=== PATIENT | male | born 1970 | race Asian ===

== ENCOUNTER 2019-07-15 08:19 | Emergency (ER) | payer MEDICAID ==
[~2019-07-15] VITALS: Ht 165.1 cm; Wt 77.3 kg
[2019-07-15] MEDS ORDERED: ondansetron/PF 4mg/2ml inj IV ONE ×2 (08:25→10:15)
[2019-07-15] MEDS ORDERED: normal saline 1000ML IV soln IVB ONE (08:25)
[2019-07-15] MEDS ORDERED: morphine 4 MG/ML inj SYRINge IV PRN (08:25)
[2019-07-15 08:54] LABS: BASOPHILS % (AUTO) 0.3 % (0-1); EOSINOPHILS % (AUTO) 0.3 % (0-6); HEMATOCRIT 40.5 % (42.0-52.0); HEMOGLOBIN 13.6 g/dl (14.0-17.9); LYMPHOCYTES # (AUTO) 1.3 X10'3 (1.1-4.8); LYMPHOCYTES % (AUTO) 10.4 % (21-51); MEAN CORPUSCULAR HEMOGLOBIN 30.2 PG (27.0-31.0); MEAN CORPUSCULAR HGB CONC 33.5 g/dL (33.0-36.5); MEAN PLATELET VOLUME 6.8 FL (7.4-10.4); MONOCYTES # (AUTO) 0.8 X10'3 (0-0.9); MONOCYTES % (AUTO) 6.4 % (2-12); NEUTROPHILS # (AUTO) 10.6 X10'3 (1.8-7.7); NEUTROPHILS % (AUTO) 82.6 % (42-75); PLATELET COUNT 503 X10'3 (140-440); RED CELL DISTRIBUTION WIDTH 14.3 % (11.5-14.5); WHITE BLOOD COUNT 12.8 X10'3 (4.5-11.0)
[2019-07-15 09:14] LABS: ALANINE AMINOTRANSFERASE 29 U/L (12-78); ALBUMIN 3.9 G/DL (3.4-5.0); ALBUMIN/GLOBULIN RATIO 1.1 (1.1-1.5); ALKALINE PHOSPHATASE 96 IU/L (46-116); ANION GAP 7 (8-16); ASPARTATE AMINO TRANSFERASE 22 U/L (10-37); BILIRUBIN,TOTAL 0.3 MG/DL (0.1-1.0); BLOOD UREA NITROGEN 11 MG/DL (7-18); BUN/CREATININE RATIO 14.3 (5.4-32.0); CALCIUM 8.6 MG/DL (8.5-10.1); CHLORIDE 102 MMOL/L (99-107); CREATININE 0.77 MG/DL (0.60-1.10); GLUCOSE 113 MG/DL (70-104); LIPASE 123 U/L (73-393); POTASSIUM 3.9 MMOL/L (3.5-5.1); SODIUM 138 MMOL/L (135-145); TOTAL CARBON DIOXIDE 28.6 MMOL/L (24-32); TOTAL PROTEIN 7.4 G/DL (6.4-8.2); eGFR > 90 ML/MIN
[2019-07-15] MEDS ORDERED: ketorolac trometh. 30mg/ml inj. IV ONE (09:45)
[2019-07-15] MEDS ORDERED: famotidine/PF 10 mg/ml inj IV ONE (09:45)
[2019-07-15 09:49] LABS: CLARITY,URINE CLEAR (Clear); COLOR,URINE STRAW (Yellow); GLUCOSE, URINE NEGATIVE (Neg); KETONES,URINE TRACE mg/dl (Neg); LEUKOCYTE ESTERASE ,URINE NEGATIVE (Neg); NITRITES, URINE NEGATIVE (Neg); OCCULT BLOOD,URINE TRACE-INTACT (Neg); PROTEIN,URINE NEGATIVE (Neg); UROBILINOGEN,URINE 0.2 E.U/dL (0.2-1.0)
--- NOTE | 2019-07-15 09:50 | NUR ---
Breaking Primary RN, pt is laying on his left side, reattached tele leads.
[2019-07-15 09:51] LABS: UA COLLECTION TYPE CLN CATCH MIDSTREAM
[2019-07-15 09:54] LABS: MUCUS STRANDS MANY /LPF (Neg); SQUAMOUS EPITHELIAL CELL,UR FEW /LPF (FEW); TRANSITIONAL EPI CELLS,URINE FEW /HPF
[2019-07-15 09:55] LABS: BACTERIA,URINE FEW /HPF (Neg)
[2019-07-15 09:56] LABS: RBC,URINE 0-2 /HPF (0-2); WBC,URINE NONE SEEN /HPF (0-4)
--- NOTE | 2019-07-15 09:58 | NUR ---
pt to the bathroom
[2019-07-15 10:01] LABS: ETHANOL < 0.010 GM/DL (0.0-0.010)
[2019-07-15 10:04] VITALS: BP 170/91
[2019-07-15] MEDS ORDERED: ONDA4TAB6 PO (10:05)
[2019-07-15 11:14] LABS: URINE AMPHETAMINE SCREEN POSITIVE (Neg); URINE BARBITUATE SCREEN NEGATIVE (Neg); URINE BENZODIAZEPINES SCREEN NEGATIVE (Neg); URINE CANNABINOID SCREEN NEGATIVE (Neg); URINE COCAINE SCREEN NEGATIVE (Neg); URINE METHADONE SCREEN NEGATIVE (Neg); URINE OPIATE SCREEN POSITIVE (Neg); URINE PHENCYCLIDINE SCREEN NEGATIVE (Neg)
--- NOTE | 2019-07-15 11:29 | NUR ---
UPON D/C, PT BECAME VERY ANGRY AND STATED HE DIDNT WANT TO LEAVE AND WAS JUST GOING TO GO CALL AN AMBULANCE AND COME BACK IN 20 MINUTES. PT STARTED YELLING AT NURSE IN HIS [employer] LANGUAGE. SECURITY CALLED TO ESCORT PT OUT.
== END 2019-07-15 11:36 | disposition home or self-care (01) ==
LOC: ER 08:20
DX: K52.9 Noninfective gastroenteritis and colitis, unspecified (principal); F17.200 Nicotine dependence, unspecified, uncomplicated; F15.90 Other stimulant use, unspecified, uncomplicated; Z59.0 Homelessness; Z88.0 Allergy status to penicillin; Z79.899 Other long term (current) drug therapy
CPT/HCPCS: 36415; 71045; 74176; 80053; 80305; 80320; 81001; 83690; 85025; 93005; 96361; 96374; 96375; 96376; 99284; J1885; J2270; J2405; J3490; J7030; 96360

== ENCOUNTER 2019-07-15 22:25 | Emergency (ER) | payer MEDICAID ==
[~2019-07-15] VITALS: Ht 165.1 cm; Wt 77.2 kg
[~2019-07-15 22:25] MED LIST: ONDA4TAB6 PO
[2019-07-15 22:35] VITALS: BP 144/82
--- NOTE | 2019-07-15 23:35 | NUR ---
PT WAS BANGING ON WINDOWS AND YELLING IN ER LOBBY PT ESCORTED OUT OF ED BY SECURITY
== END 2019-07-15 23:38 | disposition left against medical advice (07) ==
LOC: ER 22:25
DX: R10.84 Generalized abdominal pain (principal); Z53.21 Procedure and treatment not carried out due to patient leaving prior to being seen by health care provider

== ENCOUNTER 2019-07-29 21:03 | Emergency (ER) | payer MEDICAID ==
[~2019-07-29] VITALS: Ht 165.1 cm; Wt 79.1 kg
[2019-07-29] MEDS ORDERED: normal saline 1000ML IV soln IVB ONE (21:25)
[2019-07-29] MEDS ORDERED: ketorolac trometh. 30mg/ml inj. IV ONE (21:25)
[2019-07-29 21:31] LABS: BASOPHILS # (AUTO) 0.1 X10'3 (0-0.2); EOSINOPHILS # (AUTO) 0.3 X10'3 (0-0.9); EOSINOPHILS % (AUTO) 2.1 % (0-6); HEMATOCRIT 35.3 % (42.0-52.0); LYMPHOCYTES # (AUTO) 4.1 X10'3 (1.1-4.8); LYMPHOCYTES % (AUTO) 28.2 % (21-51); MEAN CORPUSCULAR HEMOGLOBIN 30.2 PG (27.0-31.0); MEAN CORPUSCULAR HGB CONC 33.8 g/dL (33.0-36.5); MEAN CORPUSCULAR VOLUME 89.3 FL (78-98); MEAN PLATELET VOLUME 6.4 FL (7.4-10.4); MONOCYTES # (AUTO) 1.1 X10'3 (0-0.9); MONOCYTES % (AUTO) 7.5 % (2-12); NEUTROPHILS # (AUTO) 8.9 X10'3 (1.8-7.7); NEUTROPHILS % (AUTO) 61.2 % (42-75); PLATELET COUNT 520 X10'3 (140-440); RED BLOOD COUNT 3.96 X10'6 (4.70-6.10); RED CELL DISTRIBUTION WIDTH 14.2 % (11.5-14.5); WHITE BLOOD COUNT 14.6 X10'3 (4.5-11.0)
[2019-07-29 21:40] LABS: CLARITY,URINE CLEAR (Clear); COLOR,URINE STRAW (Yellow); GLUCOSE, URINE NEGATIVE (Neg); KETONES,URINE NEGATIVE (Neg); LEUKOCYTE ESTERASE ,URINE NEGATIVE (Neg); NITRITES, URINE NEGATIVE (Neg); OCCULT BLOOD,URINE NEGATIVE (Neg); PROTEIN,URINE NEGATIVE (Neg); UROBILINOGEN,URINE 0.2 E.U/dL (0.2-1.0)
[2019-07-29 21:43] LABS: ALANINE AMINOTRANSFERASE 47 U/L (12-78); ALBUMIN 3.1 G/DL (3.4-5.0); ALBUMIN/GLOBULIN RATIO 0.8 (1.1-1.5); ALKALINE PHOSPHATASE 111 IU/L (46-116); ANION GAP 5 (8-16); ASPARTATE AMINO TRANSFERASE 29 U/L (10-37); BILIRUBIN,TOTAL 0.1 MG/DL (0.1-1.0); BLOOD UREA NITROGEN 26 MG/DL (7-18); BUN/CREATININE RATIO 29.5 (5.4-32.0); CALCIUM 8.5 MG/DL (8.5-10.1); CHLORIDE 105 MMOL/L (99-107); CREATININE 0.88 MG/DL (0.60-1.10); GLUCOSE 98 MG/DL (70-104); LIPASE 137 U/L (73-393); POTASSIUM 3.9 MMOL/L (3.5-5.1); SODIUM 138 MMOL/L (135-145); TOTAL CARBON DIOXIDE 27.7 MMOL/L (24-32); TOTAL PROTEIN 6.9 G/DL (6.4-8.2); UA COLLECTION TYPE CLN CATCH MIDSTREAM; eGFR > 90 ML/MIN
[2019-07-29 21:50] LABS: URINE AMPHETAMINE SCREEN NEGATIVE (Neg); URINE BARBITUATE SCREEN NEGATIVE (Neg); URINE BENZODIAZEPINES SCREEN NEGATIVE (Neg); URINE CANNABINOID SCREEN NEGATIVE (Neg); URINE COCAINE SCREEN NEGATIVE (Neg); URINE METHADONE SCREEN NEGATIVE (Neg); URINE OPIATE SCREEN NEGATIVE (Neg); URINE PHENCYCLIDINE SCREEN NEGATIVE (Neg)
[2019-07-29 22:22] VITALS: BP 158/87
--- NOTE | 2019-07-29 22:45 | NUR ---
NO RESPONSE FROM ULTRASOUND, SECOND PAGE SENT AT THIS TIME
[2019-07-29] MEDS ORDERED: mag hydrox/Alum hydrox/simeth 30ml oral suspension PO ONE (23:25)
[2019-07-29] MEDS ORDERED: LIDOcaine Viscous 15ml cup MM ONE (23:25)
[2019-07-29] MEDS ORDERED: OMEP40CA13 PO (23:30)
== END 2019-07-29 23:46 | disposition home or self-care (01) ==
LOC: ER 21:04
DX: R10.11 Right upper quadrant pain (principal); R05 Cough; R11.0 Nausea; F15.90 Other stimulant use, unspecified, uncomplicated; F17.210 Nicotine dependence, cigarettes, uncomplicated; Z88.0 Allergy status to penicillin; Z79.899 Other long term (current) drug therapy
CPT/HCPCS: 36415; 71045; 76700; 80053; 80305; 81003; 83690; 84145; 85025; 96374; 99284; J1885; J7030